=== PATIENT | male | born 1990 | race Caucasian/White ===

== ENCOUNTER 2016-11-05 09:07 | Emergency (ER) | payer OTHER ==
[~2016-11-05] VITALS: Ht 177.8 cm; Wt 79.9 kg
[~2016-11-05 09:07] MED LIST: AMOXICILLIN500 M1 PO; MOTRIN800 MG PO; PREDNISONE20 MG PO; SUBOXONE 8 MG-1 EAC2 SL; ULTRAM50 MG PO; VENTOLIN HFA18 GM IH; ZITHROMAX Z-PA250 MG PO; ZITHROMAX500 MG PO
[2016-11-05 09:10] VITALS: BP 130/96
[2016-11-05] MEDS ORDERED: MOTRIN800 MG PO (10:11)
[2016-11-05] MEDS ORDERED: PEN-VEE K,VEET500 MG PO (10:11)
== END 2016-11-05 10:35 | disposition home or self-care (01) ==
LOC: EME 09:07
DX: K04.7 Periapical abscess without sinus (principal); K02.9 Dental caries, unspecified; K12.1 Other forms of stomatitis; F17.200 Nicotine dependence, unspecified, uncomplicated
CPT/HCPCS: 99281; 99282

== ENCOUNTER 2017-01-06 23:12 | Emergency (ER) | payer OTHER ==
[~2017-01-06] VITALS: Ht 177.8 cm; Wt 81.9 kg
[~2017-01-06 23:12] MED LIST changes: +PEN-VEE K,VEET500 MG PO
[2017-01-06 23:35] LABS: EOSINOPHIL (%) 2.9 % (0-5); EOSINOPHIL COUNT 0.2 K/uL (0-0.3); HEMATOCRIT 37.9 % (38.0-50.0); IMMATURE GRANULOCYTE (%) 0.3 % (0.0-0.7); MCH 31.8 PG (29.0-34.0); MCHC 35.6 G/DL (30.0-36.0); MCV 89.4 FL (86-99); MEAN PLAT.VOLUME 8.8 uM^3 (9.0-12.4); MONOCYTE (%) 5.9 % (3-12); MONOCYTE COUNT 0.5 K/uL (0-0.8); PLATELET COUNT 324 K/uL (156-360); RBC DIS.WIDTH-CV 11.9 % (11.8-14.6); RBC DIS.WIDTH-SD 38.5 % (39-53); RED BLOOD COUNT 4.24 M/uL (4.00-5.50); WHITE BLOOD COUNT 7.7 K/uL (4.1-10.2)
[2017-01-06 23:43] LABS: AMYLASE 48 IU/L (1-118); CHLORIDE 106 mEq/L (99-109); POTASSIUM 3.4 mEq/L (3.7-5.4); SODIUM 139 mEq/L (136-147)
[2017-01-06 23:44] LABS: GLUCOSE 116 mg/dL (70-99)
[2017-01-06 23:46] LABS: ANION GAP 11 MEQ/L (2-14)
[2017-01-06 23:48] LABS: GFR ESTIMATE (CALCULATED) > 59 mL/min/; SERUM ETHYL ALCOHOL 124 mg/dL
[2017-01-06 23:49] LABS: UREA NITROGEN (BUN) 13 mg/dL (9-23)
[2017-01-06 23:51] LABS: CREATINE KINASE 159 IU/L (1-294); LIPASE 10 U/L (1.0-51.0)
[2017-01-07 01:31] VITALS: BP 126/72
== END 2017-01-07 01:35 | disposition short-term general hospital (02) ==
LOC: EME 23:12 → TRA 23:12
PROVIDERS: Emergency Medicine
PROC: 3E0234Z Introduction of Serum, Toxoid and Vaccine into Muscle, Percutaneous Approach (ICD-10-PCS; principal; 2017-01-06)
DX: S66.221A Laceration of extensor muscle, fascia and tendon of right thumb at wrist and hand level, initial encounter (principal); T75.4XXA Electrocution, initial encounter; W26.8XXA Contact with other sharp object(s), not elsewhere classified, initial encounter; W86.0XXA Exposure to domestic wiring and appliances, initial encounter; Y93.E9 Activity, other interior property and clothing maintenance; Y92.009 Unspecified place in unspecified non-institutional (private) residence as the place of occurrence of the external cause; F17.200 Nicotine dependence, unspecified, uncomplicated; I45.10 Unspecified right bundle-branch block
CPT/HCPCS: 80048; 81003; 82150; 82550; 83690; 85025; 86850; 86900; 86901; 93005; 99281; 99285; G0480; J0690; J2270; J3010; J7030